=== PATIENT | female | born 2005 | race Caucasian/White ===

== ENCOUNTER 2024-11-19 17:20 | Emergency (ER) | payer BC ==
[2024-11-19 17:32] VITALS: TEMP 98.1
--- NOTE | 2024-11-19 17:47 | ED ---
General Adult HPI - General Chief complaint: Abdominal Pain Stated complaint: abd pain Time Seen by Provider: 11/19/24 17:35 Source: patient, RN notes reviewed Mode of arrival: ambulatory Limitations: no limitations - History of Present Illness Initial comments: This is a 18-year-old female, [id number], at 16 weeks gestation presents emergency room for complaint of diffuse abdominal pain. States that pain started yesterday evening at 1700 and is primarily located in the bilateral lower quadrants. Denies nausea, vomiting, diarrhea, constipation, genital bleeding, vaginal discharge, dysuria, hematuria. Endorses increase in urination. Denies vaginal bleeding. States that she does have a known right ovarian cyst with her follow-up appointment scheduled with OB on 11/27/[address] [facility]. - Related Data Allergies Allergy/AdvReac Type Severity Reaction Status Date / Time No Known Allergies Allergy Verified 11/19/24 17:32 Review of Systems ROS Statement: Those systems with pertinent positive or pertinent negative responses have been documented in the HPI. ROS Other: All systems not noted in ROS Statement are negative. Past Medical History Past Medical History: No Reported History History of Any Multi-Drug Resistant Organisms: None Reported Past Surgical History: Tonsillectomy Past Psychological History: No Psychological Hx Reported Smoking Status: Never smoker Past Alcohol Use History: None Reported Past Drug Use History: None Reported General Exam - General Exam Comments Initial Comments: Visual Physical Exam Vital signs reviewed General: Well-appearing, nontoxic, no acute distress. Head: Normocephalic, atraumatic Eyes: PERRLA, EOMI ENT: Airway patent Chest: Nonlabored breathing Skin: No visual rash, normal skin tone Neuro: Alert and oriented 3 Musculoskeletal: No gross abnormalities Limitations: no limitations General appearance: alert, in no apparent distress Neck exam: Present: normal inspection. Absent: tenderness, meningismus, lymphadenopathy Respiratory exam: Present: normal lung sounds bilaterally. Absent: respiratory distress, wheezes, rales, rhonchi, stridor Cardiovascular Exam: Present: regular rate, normal rhythm, normal heart sounds. Absent: systolic murmur, diastolic murmur, rubs, gallop, clicks GI/Abdominal exam: Present: soft, tenderness (lower quadrants, bilaterally), normal bowel sounds. Absent: distended, guarding, rebound, rigid Extremities exam: Present: normal inspection, full ROM, normal capillary refill. Absent: tenderness, pedal edema, joint swelling, calf tenderness Back exam: Present: normal inspection Course Vital Signs 11/19/24 11/19/24 17:30 20:14 Temperature 98.1 F Pulse Rate 92 82 Respiratory 20 18 Rate Blood Pressure 127/77 107/73 O2 Sat by Pulse 99 100 Oximetry Medical Decision Making - Medical Decision Making I was pt. sent in by a medical professional or institution (, PA, HOME ADVISOR, urgent care, hospital, or alf...) When possible be specific @ -No Did you speak to anyone other than the patient for history (EMS, parent, family, police, friend...)? What history was obtained from this source @ -No Did you review nursing and triage notes (agree or disagree)? Why? @ -I reviewed and agree with nursing and triage notes Were old charts reviewed (outside hosp., previous admission, EMS record, old EKG, old radiological studies, urgent care reports/EKG's, alf records)? Report findings @ -Reviewed patient's previous emergency department visit note where she had an ultrasound completed of the abdomen in addition to ultrasound which revealed a adnexal structure consistent with an ovarian cyst of the right ovary. Differential Diagnosis (chest pain, altered mental status, abdominal pain women, abdominal pain men, vaginal bleeding, weakness, fever, dyspnea, syncope, headache, dizziness, GI bleed, back pain, seizure, CVA, palpatations, mental health, musculoskeletal)? @ -Differential Abdominal Pain Women: Appendicitis, Cholecystitis, diverticulosis, ischemic bowel, pancreatitis, hepatitis, UTI, gastroenteritis, AAA, incarcerated hernia, bowel obstruction, constipation, inflammatory bowel, hepatitis, peptic ulcer disease, splenic infarction, perforated viscus, vulvitis, ovarian torsion, PID, kidney stone, placenta abruption, this is not meant to be an all-inclusive list EKG interpreted by me (3pts min.). @ -None X-rays interpreted by me (1pt min.). @ -None done CT interpreted by me (1pt min.). @ -None done U/S interpreted by me (1pt. min.). @ - ultrasound completed remarkable for a single live intrauterine gestation at 17 weeks 2 days with a heart rate of 142 in addition to a indeterminate right adnexal cystic structure with largest measuring up to 13.4 cm. What testing was considered but not performed or refused? (CT, X-rays, U/S, labs)? Why? @ -None What meds were considered but not given or refused? Why? @ -None Did you discuss the management of the patient with other professionals (professionals i.e. , PA, HOME ADVISOR, lab, RT, psych nurse, clinical social work aide, manager product support, teacher, property officer, renal case manager)? Give summary @ -I spoke with on-call OB physician, Dr. Valladares, who has recommended the patient follow-up as scheduled with OB on 11/27/2024 for further intervention. Was smoking cessation discussed for >3mins.? @ -No Was critical care preformed (if so, how long)? @ -No Were there social determinants of health that impacted care today? How? ( Homelessness, low income, unemployed, alcoholism, drug addiction, transportation, low edu. Level, literacy, decrease access to med. care, snf, rehab)? @ -No Was there de-escalation of care discussed even if they declined (Discuss DNR or withdrawal of care, Hospice)? DNR status @ -No What co-morbidities impacted this encounter? (DM, HTN, Smoking, COPD, CAD, Cancer, CVA, ARF, Chemo, Hep., AIDS, mental health diagnosis, sleep apnea, morbid obesity)? @ -None Was patient admitted / discharged? Hospital course, mention meds given and route, prescriptions, significant lab abnormalities, going to OR and other pertinent info. @ -Discharge. 18-year-old female presents emergency room with abdominal pain. Overall patient is well-appearing. Abdominal exam is remarkable for bilateral lower abdominal tenderness. Laboratory testing is unremarkable. Urinalysis reveals epithelial cells secondary to contamination rather than infection. Ultrasound reveals a intrauterine gestation at 17 weeks 2 days and a cystic structure measuring up to 13.4 cm. I discussed this case with on-call OB ph ysician, Dr. Yip, who has recommended that patient follow-up as scheduled with OB on 11/27/2024 as there is no indication for emergent intervention at this time. All questions have been answered at bedside answered return parameters have been discussed with the patient she is verbalized unde rstanding. She is also provided with dose of Tylenol while in the emergency department. Case discussed with Dr. Prince Undiagnosed new problem with uncertain prognosis? @ -No Drug Therapy requiring intensive monitoring for toxicity (Heparin, Nitro, Insulin, Cardizem)? @ -No Were any procedures done? @ -No Diagnosis/symptom? @ -Ovarian cyst, abdominal pain during Acute, or Chronic, or Acute on Chronic? @ -Acute Uncomplicated (without systemic symptoms) or Complicated (systemic symptoms)? @ -Uncomplicated Side effects of treatment? @ -No Exacerbation, Progression, or Severe Exacerbation? @ -No Poses a threat to life or bodily function? How? (Chest pain, [place], [place], pneumonia, PE, COPD, DKA, ARF, appy, cholecystitis, CVA, Diverticulitis, Homicidal, Suicidal, threat to staff... and all critical care pts) @ -No - Lab Data Result diagrams: 11/19/24 17:59 11/19/24 17:59 Lab Results 11/19/24 11/19/24 11/19/24 Range/Units 17:59 17:59 18:49 WBC 8.4 (4.0-11.0) k/uL RBC 4.01 (3.80-5.40) m/uL Hgb 12.4 (11.4-16.0) gm/dL Hct 37.7 (34.0-46.0) % MCV 94.2 (80.0-100.0) fL MCH 30.9 (25.0-35.0) pg MCHC 32.8 (31.0-37.0) g/dL RDW 13.4 (11.5-15.5) % Plt Count 237 (150-450) k/uL MPV 7.0 Neutrophils % 59 % Lymphocytes % 32 % Monocytes % 5 % Eosinophils % 2 % Basophils % 0 % Neutrophils # 4.9 (1.3-7.7) k/uL Lymphocytes # 2.7 (1.0-4.8) k/uL Monocytes # 0.4 (0-1.0) k/uL Eosinophils # 0.1 (0-0.7) k/uL Basophils # 0.0 (0-0.2) k/uL Sodium 137 (137-145) mmol/L Potassium 4.0 (3.5-5.1) mmol/L Chloride 102 (98-107) mmol/L Carbon Dioxide 26 (22-30) mmol/L Anion Gap 9 mmol/L BUN 9 (7-17) mg/dL Creatinine 0.63 (0.52-1.04) mg/dL Est GFR (CKD-EPI)AfAm >90 (>60 ml/min/1.73 sqM) Est GFR (CKD-EPI)NonAf >90 (>60 ml/min/1.73 sqM) Glucose 96 (74-99) mg/dL Calcium 9.4 (8.4-10.2) mg/dL Total Bilirubin 0.4 (0.2-1.3) mg/dL AST 18 (14-36) U/L ALT 17 (4-34) U/L Alkaline Phosphatase 54 (38-126) U/L Total Protein 6.7 (6.3-8.2) g/dL Albumin 4.1 (3.5-5.0) g/dL Lipase 97 (23-300) U/L HCG, Quant 48029.5 mIU/mL Urine Color Yellow Urine Appearance Cloudy H (Clear) Urine pH 6.5 (5.0-8.0) Ur Specific [place] 1.026 (1.001-1.035) Urine Protein Trace H (Negative) Urine Glucose (UA) Negative (Negative) Urine Ketones Negative (Negative) Urine Blood Negative (Negative) Urine Nitrite Negative (Negative) Urine Bilirubin Negative (Negative) Urine Urobilinogen 2.0 (<2.0) mg/dL Ur Leukocyte Esterase Trace H (Negative) Urine RBC 3 (0-5) /hpf Urine WBC 10 H (0-5) /hpf Ur Squamous Epith Cells 20 H (0-4) /hpf Urine Bacteria Rare H (None) /hpf Urine Mucus Rare H (None) /hpf Disposition Clinical Impression: Abdominal pain during , Ovarian cyst Disposition: HOME SELF-CARE Condition: Good Instructions (If sedation given, give patient instructions): Ovarian Cyst (ED) Additional Instructions: Please return to the Emergency Department if symptoms worsen or any other concerns. Follow-up with your OB as scheduled. Is patient prescribed a controlled substance at d/c from ED?: No Referrals: Abraham Hodgson MD [Primary Care Provider] - 1-2 days Time of Disposition: 19:59
[2024-11-19 18:09] LABS: Basophils % (A) 0 %; Eosinophils # (A) 0.1 k/uL (0-0.7); Eosinophils % (A) 2 %; HCT 37.7 % (34.0-46.0); HGB 12.4 gm/dL (11.4-16.0); Lymphocytes # (A) 2.7 k/uL (1.0-4.8); Lymphocytes % (A) 32 %; MCH 30.9 pg (25.0-35.0); MCHC 32.8 g/dL (31.0-37.0); MCV 94.2 fL (80.0-100.0); Monocytes # (A) 0.4 k/uL (0-1.0); Monocytes % (A) 5 %; Neutrophils # (A) 4.9 k/uL (1.3-7.7); Neutrophils % (A) 59 %; Platelet Count 237 k/uL (150-450); RBC 4.01 m/uL (3.80-5.40); RDW 13.4 % (11.5-15.5); WBC 8.4 k/uL (4.0-11.0)
[2024-11-19 18:30] LABS: ALT 17 U/L (4-34); AST 18 U/L (14-36); African American GFR (CKD) >90 (>60 ml/min/1.73 sqM); Albumin 4.1 g/dL (3.5-5.0); Alkaline Phosphatase 54 U/L (38-126); Anion Gap 9 mmol/L; Blood Urea Nitrogen 9 mg/dL (7-17); Calcium 9.4 mg/dL (8.4-10.2); Carbon Dioxide 26 mmol/L (22-30); Chloride 102 mmol/L (98-107); Glucose 96 mg/dL (74-99); Lipase 97 U/L (23-300); Non-African American GFR(CKD) >90 (>60 ml/min/1.73 sqM); Sodium 137 mmol/L (137-145); Total Bilirubin 0.4 mg/dL (0.2-1.3); Total Protein 6.7 g/dL (6.3-8.2)
[2024-11-19 18:45] LABS: HCG,Quantitative Serum 11494.5 mIU/mL
--- NOTE | 2024-11-19 19:17 | US ---
EXAMINATION TYPE: US OB >= 14 wk fetus DATE OF EXAM: 11/19/2024 COMPARISON: US(11/07/2024) CLINICAL INDICATION: Female, 18 years old with history of 16 weeks preg; Pt is experiencing abdominal pain, 16 weeks preg, known rt ovarian cyst TECHNIQUE: Transabdominal (TA) FINDINGS: GESTATIONAL AGE / DATING Physician Established: (16 weeks/0 days) EDC: 05/06/2025 Dates by First Scan: (14 weeks/2 days) EDC: 05/06/2025 Dates by Current Scan: (17 weeks/2 days) EDC: 04/27/2025 Beta HCG (if available): Not available at this time SURVEY IUP: Single PLACENTA: Anterior Multiple anechoic areas seen within placenta PREVIA: No Previa ELADIO: 12.7 cm Normal CERVICAL LENGTH (transabdominal: norm > 3.0cm): 3.1 cm Large anechoic area seen within rt adnexa: 13.4x5.6x16.3cm Previous US (11/06/2024): 13.1x6.4x14.7 BIOMETRY PRESENTATION: Vertex LIE: Variable BPD: 3.8 cm 17 weeks / 4 days HC: 13.7 cm 17 weeks / 2 days AC: 11.4 cm 17 weeks / 2 days FL: 2.2 cm 16 weeks / 4 days ESTIMATED WEIGHT IN GRAMS: 173 grams ESTIMATED WEIGHT IN LBS/OZ: 0 lbs. 6 oz. WEIGHT PERCENTAGE BASED ON ESTABLISHED DATES: 93% HC/AC: 1.2 Normal FL/AC: 19% HEART RATE: 142 bpm RHYTHM: Normal MATERNAL WALL MEASUREMENT: Not performed by freelance writer. IMPRESSION: 1. Single live intrauterine gestation ultrasound age 17 weeks 2 days. Additional information as desc ribed above. 2. There remains indeterminate right adnexal cystic structure which is large measuring up to 13.4 cm . Further workup recommended consider MRI without IV contrast. [facility], , 11/19/2024 7:15 PM
[2024-11-19 19:21] LABS: Appearance,Urine Cloudy (Clear); Bacteria,Urine Rare /hpf; Bilirubin,Urine Negative (Negative); Blood,Urine Negative (Negative); Color,Urine Yellow; Glucose,Urine (UA) Negative (Negative); Ketones,Urine Negative (Negative); Leukocyte Esterase,Urine Trace (Negative); Mucus,Urine Rare /hpf; Nitrite,Urine Negative (Negative); PH, Urine 6.5 (5.0-8.0); Protein,Urine Trace (Negative); RBC,Urine 3 /hpf (0-5); Specific Gravity,Urine 1.026 (1.001-1.035); Squamous Epithelial Cell,Urine 20 /hpf (0-4); WBC,Urine 10 /hpf (0-5)
[2024-11-19] MEDS: ACETAMINOPHEN TAB 325 MG TAB PO STA (20:05)
[2024-11-19 20:16] VITALS: BP 107/73; PULSE 82; RESP 18
== END 2024-11-19 20:14 | disposition home or self-care (01) ==
LOC: EC 17:20
DX: O26.892 Other specified pregnancy related conditions, second trimester (principal); N83.201 Unspecified ovarian cyst, right side; Z3A.17 17 weeks gestation of pregnancy
CPT/HCPCS: 36415; 76805; 80053; 81001; 83690; 84702; 85025; 99284